=== PATIENT | female | born 1975 | race Caucasian/White ===

== ENCOUNTER 2022-06-20 20:04 | Emergency (ER) | payer OTHER ==
[~2022-06-20] VITALS: Ht 157.5 cm; Wt 49.1 kg
[2022-06-20 20:16] VITALS: BP 101/68
[2022-06-20] MEDS ORDERED: BACITRACIN 0.9 GM PACKET OINTMENT TP ONE (20:30)
[2022-06-20] MEDS ORDERED: PERTUSS(ACELL),DIPH,TET VAC/PF 0.5 ML SYRINGE IM. ONE (20:30)
== END 2022-06-20 21:00 | disposition home or self-care (01) ==
LOC: EMS 20:07
DX: S61.210A Laceration without foreign body of right index finger without damage to nail, initial encounter (principal); F31.9 Bipolar disorder, unspecified; W26.0XXA Contact with knife, initial encounter; Y93.89 Activity, other specified; Y92.89 Other specified places as the place of occurrence of the external cause; Y99.8 Other external cause status
CPT/HCPCS: 90471; 90715; 99283